=== PATIENT | male | born 1970 | race Caucasian/White ===

== ENCOUNTER 2017-01-09 11:36 | Emergency (ER) | payer SELFPAY ==
[2017-01-09 11:48] VITALS: BP 153/104
[2017-01-09] MEDS ORDERED: DIPHTH,PERTUSS(ACELL),TET VAC 0.5 ML VIAL IM ONE ×2 (12:55→12:57)
--- NOTE | 2017-01-09 12:59 | ERNOTE ---
Upper Extremity HPI - Narrative Date of Service: 01/09/17 - General Extremities Pain Location: hand: left Time Seen by Provider: 01/09/17 12:26 Source: patient Exam Limitations: no limitations - Immun/Allergies/Home Medications Immunizations: IMMUNIZATION HX Immunizations Up to Date Yes History of Influenza Vaccine No Hx Pneumococcal Vaccination No Allergies/Adverse Reactions: Allergies Allergy/AdvReac Type Severity Reaction Status Date / Time No Known Allergies Allergy Verified 01/09/17 11:48 Home Medications: HOME MEDICATIONS Cephalexin Monohydrate [Keflex] 500 mg PO QID #40 cap 01/09/17 [Last Taken Unknown] oxyCODONE HCL/ACETAMINOPHEN [Percocet 5 MG/325 MG] 1 tab PO Q4H PRN #20 tab [Last Taken Unknown] - History of Present Illness Narrative: Pt. comes in with L dorsal hand and fourth and fifth finger pain after having a pallet fall onto his hand at work just prior to arrival. Pt. denies any numbness , tingling, SOB, CP, NVD, fever or any other recent illness. Pt. denies any prehospital treatment. Review of Systems - Review of Systems Constitutional: Present: no symptoms reported. Absent: recent illness, fever, chills, weakness, fatigue EYE: Present: no symptoms reported ENT: Present: no symptoms reported Respiratory: Present: no symptoms reported. Absent: shortness of breath, cough , wheezing Cardiology: Present: no symptoms reported. Absent: chest pain, palpitations, edema Gastrointestinal/Abdominal: Present: no symptoms reported. Absent: nausea, vomiting Genitourinary: Present: no symptoms reported Musculoskeletal: Present: joint pain - L fourth and fifth finger and L hand Skin: Present: other - abrasion L dorsal hand Neurological: Present: no symptoms reported. Absent: headache, dizziness/light- headedness, numbness, tingling Endocrine: Present: no symptoms reported Hematologic/Lymphatic: Present: no symptoms reported All Other Systems: All systems neg except as marked - Patient's Past Medical History Patient History - Medical: Other Patient History - Cardiac/Respiratory: No pertinent hx Patient History - Cancer: No Hx of Cancer Patient History - Surgical Procedures: No surgical history Patient History - Other: None - Social History Living Situations: home Abuse History: No History of abuse Psych History: No pertinent hx Smoking Status: Current every day smoker Alcohol Use: none Drug Use: none - Immunizations Immunizations Up to Date: Yes Hx Pneumococcal Vaccination: No History of Influenza Vaccine: No Physical Exam - Physical Exam General Appearance: Present: wd/wn, alert, no apparent distress Eye Exam: Normal inspection: bilateral, PERRL: bilateral, EOMI: bilateral Ears, Nose, Throat: Present: normal ENT inspection, normal pharynx Neck: Present: normal inspection, nontender. Absent: lymphadenopathy (R), lymphadenopathy (L) Respiratory: Present: no respiratory distress, normal breath sounds, no accessory muscle use, chest nontender, lungs clear Cardiovascular/Chest: Present: regular rate, rhythm, no murmur, normal peripheral pulses Gastrointestinal/Abdominal: Present: normal bowel sounds, nontender, nondistended, soft, no organomegaly Back Exam: Present: normal inspection, normal range of motion, no CVA tenderness , no vertebral tenderness Extremity Exam: Present: other - swelling and tenderness of L fourth and fifth fingers and L dorsal hand. Contusion of L hand 4cm square and abrasion proximal to L fifth phalanx on L hand 0.3cm x 0.2cm superficial Neurological Exam: Present: alert, oriented, normal mood/affect, no motor/ sensory deficits ED Progress - Date and Time Seen: Date and Time: 01/09/17 12:56 As abrasion is proximal to fracture feel that this is not likely open but will start on sabx just in case it is the mechanism. Also will update tetanus as his vaccine status is not up to date. 01/09/17 12:58 Discussed with lacie gee and will splint with ulnar gutter splint and have him follow up with him in the morning as recommended. - Vital Signs Patient's Vital Signs:: I have reviewed the patient's vital signs. Vital Signs: Vital Signs 01/09/17 11:44 Temperature 36.6 C Pulse Rate 94 Respiratory 16 Rate Blood Pressure 153/104 O2 Sat by Pulse 96 Oximetry - X-Ray X-Ray #1 X-Ray: hand Interpretation: Reviewed by me X-ray Comments: L fifth prox phalanx comminuted displaced fracture, proximal fourth phalanx with transverse fracture - Progress/Reassessment Chief Complaint: Hand Injury/Pain Departure Clinical Impression: Finger fracture, left Qualifiers: Encounter type: initial encounter Finger: little finger Fracture type: closed Phalanx: proximal Fracture alignment: displaced Qualified Code(s): S62.617A - Displaced fracture of proximal phalanx of left little finger, initial encounter for closed fracture - Departure Disposition: Home self-care Condition: Good Instructions: Finger Fracture, [id number] Additional Instructions: Please follow up with orthopedics tomorrow as scheduled. Prescriptions: Cephalexin Monohydrate [Keflex] 500 mg PO QID #40 cap oxyCODONE HCL/ACETAMINOPHEN [Percocet 5 MG/325 MG] 1 tab PO Q4H PRN #20 tab PRN Reason: Pain
== END 2017-01-09 13:11 | disposition home or self-care (01) ==
LOC: ER 11:36
PROC: 2W3FX1Z Immobilization of Left Hand using Splint (ICD-10-PCS; principal; 2017-01-09)
DX: S62.617A Displaced fracture of proximal phalanx of left little finger, initial encounter for closed fracture (principal); X58.XXXA Exposure to other specified factors, initial encounter; Y93.9 Activity, unspecified; Y92.69 Other specified industrial and construction area as the place of occurrence of the external cause; Y99.0 Civilian activity done for income or pay; Z23 Encounter for immunization; Z72.0 Tobacco use; S60.417A Abrasion of left little finger, initial encounter

== ENCOUNTER 2017-01-14 08:30 | Day surgery (SDC) | payer SELFPAY ==
[~2017-01-14 08:30] MED LIST: HYDROmorphone HCL 2 MG/ML VIAL IV PRN; RINGERS SOLUTION,LACTATED 1,000 ML IV PRN; ceFAZolin SODIUM 1 GM VIAL IV PRN; oxyCODONE HCL/ACETAMINOPHEN 1 TAB TABLET PO PRN
[2017-01-14] MEDS ORDERED: RINGERS SOLUTION,LACTATED 1,000 ML IV ONE ×2 (09:00→11:50)
[2017-01-14] MEDS ORDERED: ceFAZolin SODIUM 1 GM VIAL IV ONE (09:15)
--- NOTE | 2017-01-14 11:31 | OR ---
Operative Report - Dictated Report Narrative: Date: 01/14/2017 Surgeon: Len Guillen M.D. [employer] Consultant: Harrison Sexton PA-C Preoperative diagnosis: Left fifth finger extra-articular proximal phalanx fracture Postoperative diagnosis: Same Operation: 1 - Open reduction internal fixation of left fifth finger proximal phalanx fracture 2 - Intraoperative interpretation of x-rays Retained implants: [employer] 1.5 mm locking plate and screws Anesthesia: General plus regional Tourniquet time: 72 Minutes at 250 mmHg Estimated blood loss: Minimal Specimen: None Complications: None Indications: Aaron is a 46-year-old male who injured the left fifth finger after a pallet fell onto it at work. They were initially treated in the ER and splinted. Seen in the clinic and discuss the options for treatment. He wished to proceed with surgical treatment. The risks and benefits alternatives were discussed. Risks of , blood clots, bleeding, infection, nerve/tendon/blood vessel injury, malunion, nonunion, failure of implants, prominent implants, delayed tendon rupture, and need for additional procedures were discussed. Consent was obtained in the clinic. Procedure: After marking the correct extremity in the preoperative holding area, the patient was taken to the operating room. A timeout was performed. Anesthesia placed a regional block followed by general anesthetic. The arm was placed on an armboard with all bony prominences well-padded on the rest of the body. IV antibiotics consisting of 2 g of Ancef were administered. A well-padded tourniquet was applied to the upper surgical arm. The hand was pre-scrubbed with chlorhexidine and prepped and draped in a standard sterile fashion. After exsanguinating the extremity and inflating the tourniquet to 250 mmHg, a longitudinal incision was made over the dorsum of the left fifth finger extending from the PIP to the MCP joint, approximately 5 cm in length. Dissection was carried down through the subcutaneous tissue to the level of the extensor tendon sheath. This was incised at its ulnar border and the extensor tendon was mobilized and retracted radially. The periosteum overlying the proximal phalanx was incised and dissected away from the fracture site. The fracture site was debrided with a combination of a sharp knife and a pituitary rongeur. It was noted to be extra-articular at the metaphyseal flare of the base of the phalanx. There was a significant amount of comminution radially with a small volar, radial extra-articular fragment. The distal shaft portion was reduced to the base under direct visualization and provisionally held in place with a combination of a [id number] bone reduction clamp as well as a 0.045 inch Teodora wire. A reduction was confirmed with the mini C-arm. The finger was examined clinically and noted to have no malrotation when passively making a fist. At this point we began trialing plates for fixation. A 1.5 mm T style plate was chosen with 2 holes proximally and the base fragment and 4 holes distally. This was positioned and provisionally held in place with a K wire using mini C-arm for guidance. The distal-most shaft screw was placed in a locking fashion followed by a locking screw through one of the proximal holes into the base fragment. We again double checked our reduction with mini C-arm and it was acceptable. 2 more distal locking screws were placed through the shaft fragment and the final locking screw into the base fragment. At this point we were happy with the overall alignment and reduction of the fracture and the position of her implants. The comminution of the volar-radial aspect of the fracture was noted to be only mildly displaced and extra-articular and it was determined that it would be difficult to place any fixation through this fragment and that the dissection required to do so would likely cause more harm than good. I felt that this comminuted area would heal as our plate fixation would act as a bridging construct. At this point the wound was copiously irrigated with normal saline. The deep periosteum was closed over as much of the plate as possible using 4-0 Vicryl. The extensor tendon sheath was closed with a few interrupted 4-0 Vicryl stitches. Skin was then closed with interrupted 4-0 nylon. The wound was dressed with Xeroform, 4 x 4s, soft roll and a well-padded ulnar gutter splint with the ring and small fingers in intrinsic plus position. All sponge, sharp, and instrument counts were correct prior to closing the wounds. The patient was awoken and transferred to the postanesthesia care unit in stable condition.
[2017-01-14] MEDS ORDERED: diphenhydrAMINE HCL 50 MG/ML VIAL IV PRN (11:35)
[2017-01-14] MEDS ORDERED: ONDANSETRON HCL/PF 2 MG/ML VIAL IV PRN (11:35)
[2017-01-14] MEDS ORDERED: PROMETHAZINE HCL 12.5 MG in DEXTROSE 5 % IN WATER 50 ML IV PRN ×2 (11:35)
[2017-01-14] MEDS ORDERED: HYDROmorphone HCL 2 MG/ML VIAL IV PRN (11:35)
[2017-01-14] MEDS ORDERED: NALOXONE HCL 0.4 MG/ML VIAL IV PRN (11:35)
[2017-01-14] MEDS ORDERED: HYDROmorphone HCL 2 MG/ML VIAL IV ONE (11:50)
[2017-01-14 14:01] VITALS: BP 150/92
== END 2017-01-14 08:31 | disposition home or self-care (01) ==
LOC: AMB 08:30
PROVIDERS: ATTEND Orthopaedic Surgery
PROC: 0PSV04Z Reposition Left Finger Phalanx with Internal Fixation Device, Open Approach (ICD-10-PCS; principal; 2017-01-14 09:30)
DX: S62.617A Displaced fracture of proximal phalanx of left little finger, initial encounter for closed fracture (principal); W20.8XXA Other cause of strike by thrown, projected or falling object, initial encounter; Y99.0 Civilian activity done for income or pay; F17.200 Nicotine dependence, unspecified, uncomplicated; Z68.31 Body mass index [BMI] 31.0-31.9, adult

== ENCOUNTER 2017-01-27 09:15 | Emergency (ER) | payer SELFPAY ==
[2017-01-27 09:15] VITALS: BP 150/92
== END 2017-01-27 09:45 | disposition home or self-care (01) ==
LOC: ER 09:15
DX: Z48.02 Encounter for removal of sutures (principal)